=== PATIENT | male | born 1940 | race Hispanic/Latino ===

== ENCOUNTER 2016-08-30 08:52 | Emergency (ER) | payer MEDICARE, OTHER ==
[2016-08-30] VITALS (7 sets, daily range): BP systolic 109–140; BP diastolic 51–80; PULSE 73–82; RESP 12–18; O2SAT 91–95
[~2016-08-30] VITALS: Ht 172.7 cm; Wt 98.2 kg
[~2016-08-30 08:52] MED LIST: AMLO10TA3 PO; CLON0.1T PO; LABE200T PO; SPIR25TA3 PO; VALS320T12 PO
--- NOTE | 2016-08-30 09:07 | ED.REPORT ---
HPI-General Illness Date of Service Aug 30, 2016 ED Provider: Dr. Omer Pt is a 76 year old male with a hx of HTN, kidney problems presenting to the ED complaining of a productive cough onset last night. Associated symptoms include subjective fever and SOB. The pt was seen at recently and was diagnosed with influenza and pneumonia. Nursing Notes Stated Complaint: FEVER/SOB Chief Complaint: Respiratory Complaints Nursing Notes Reviewed: Yes Allergies: Coded Allergies: No Known Allergies (Unverified Allergy, Unknown, 02/11/15) Scheduled Amlodipine (Amlodipine) 10 Mg Tablet 10 MG PO HS Amoxicillin/Clav K 875-125 mg (Augmentin 875-125 mg) 1 Each Tablet 1 TABLET PO BID Clonidine (Clonidine) 0.1 Mg Tablet 0.1 MG PO HS Labetalol (Labetalol) 200 Mg Tablet 200 MG PO BID Levofloxacin (Levaquin) 750 Mg Tablet 750 MG PO DAILY Spironolactone (Spironolactone) 25 Mg Tablet 25 MG PO DAILY General Time Seen by MD: 09:07 Chief Complaint Cough Hx Obtained From: Patient Arrived By: Walk-in Sudden in Onset?: No Onset Occurred: Yesterday Symptom Duration: Since onset Severity: Current: No pain currently Severity: Maximum: No pain Recent Healthcare: No recent hospitalization, Recent doctor visit Similar Sx Previous: Yes Past Medical History Past Medical History Reported kidney problems Reports: Hypertension Past Surgical History Reports: Appendectomy Smoking History Former Smoker Social History Alcohol Use: Denies alcohol use Drug Use: Denies drug use Ambulatory Status Independent Review of Systems Full Review of Systems Constitutional: Reports: Fever Respiratory: Reports: Prod cough, clear, Shortness of breath GI: Denies: Abdominal pain, Nausea, Vomiting Neurologic: Denies: Weakness Complete sys rev & neg: except as marked. Physical Exam Vital Signs Vital Signs Date Time Temp Pulse Resp B/P Pulse Ox O2 Delivery O2 Flow Rate FiO2 08/30/16 11:54 76 15 121/60 93 Room Air 08/30/16 10:55 73 16 93 Room Air 08/30/16 10:49 82 123/63 93 Room Air 08/30/16 10:36 38.5 77 12 109/51 93 Room Air 08/30/16 10:17 80 91 Room Air 08/30/16 08:57 37.9 81 18 140/80 95 Initial VS: Reviewed General/Constitutional: Well-developed, Well-nourished Head / Eyes: Atraumatic, Normocephalic, PERRL ENT: Mucous membranes moist, Conjunctiva normal, No scleral icterus Cardiovascular: Regular rate & rhythm, Heart sounds normal, Intact distal pulses Abdomen / GI: Soft, Non-tender, No guarding, No rebound, No distention Extremities: Vascular intact, Neuro intact, No swelling, No tenderness Neurologic: Alert, Oriented, Nonfocal Psychiatric: Mood/affect normal, Behavior normal, Normal thought content Respiratory / Chest: Atraumatic, No respiratory distress Rales / Rhonchi: Positive: Rales bilateral bases Skin: Atraumatic, Color NL, No rash Warm to touch Interpretation & Diagnostics Lab Results Interpretation Result Diagram: 08/30/16 1018 08/30/16 1018 Test 08/30/16 10:18 White Blood Count 9.1th/mm3 (3.8-10.1) Red Blood Count 4.17mil/mm3 (4.40-5.80) Hemoglobin 13.1g/dL (13.8-17.2) Hematocrit 38.3% (41.0-50.0) Mean Corpuscular Volume 91.8fL (81-100) Mean Corpuscular Hemoglobin 31.4pg (27.0-35.0) Mean Corpuscular Hemoglobin Concent 34.2% (32.0-37.0) Red Cell Distribution Width 12.0% (12.3-15.4) Platelet Count 198bil/L (150-400) Neutrophils (%) (Auto) 71.8% (40-74) Lymphocytes (%) (Auto) 11.8% (14-46) Monocytes (%) (Auto) 15.2% (4-12) Eosinophils (%) (Auto) 0.8% (0-5) Basophils (%) (Auto) 0.2% (0-3) Sodium Level 134mEq/L (134-144) Potassium Level 4.2mEq/L (3.5-5.2) Chloride Level 96mEq/L (97-108) Carbon Dioxide Level 22mmol/L (18-29) Blood Urea Nitrogen 19mg/dL (8-27) Creatinine 1.39mg/dL (0.76-1.27) Estimat Glomerular Filtration Rate 53mL/min (>59) Glucose Level 138mg/dL (60-99) Lactic Acid Level 0.8mmol/L (0.4-2.0) Calcium Level 9.4mg/dL (8.5-10.1) Total Bilirubin 0.7mg/dL (0.0-1.2) Aspartate Amino Transf (AST/SGOT) 22U/L (0-50) Alanine Aminotransferase (ALT/SGPT) 20U/L (0-44) Alkaline Phosphatase 68U/L (25-160) Total Protein 7.9g/dL (6.4-8.4) Albumin 3.6g/dL (3.4-5.0) X-Ray Chest Interpretation Chest Xray Interpretation: IMPRESSION: 1. Infiltrate in the right upper lung zone above the minor fissure suggests pneumonia. There is pleural thickening along the minor fissure. Recommend followup to resolution. Dictated by: West Perry M.D. on 08/30/2016 at 11:45 View: AP & lat Interpretation / Wet Read by: Interpret - Radiologist Re-Eval/Medical Decision Med Decision/Clinical Course Readings consistent with community-acquired pneumonia. Patient's vital signs are stable, he had one recorded low oxygen reading at 91% however he was subsequently road tested with continuous pulse oximetry and passed with an average O2 sat of 94% and did not achieve hypoxia at any point while walking. He had no improvement with a breathing treatment however seems to have minimal symptoms while resting in the bed. His O2 sat is 93-94% while talking in the room. Labs are unremarkable. Chest x-rays consistent with pneumonia especially given his clinical history. It seems that azithromycin does not have broad coverage, he will be placed on Augmentin and Levaquin for more aggressive antibiotic therapy. Additionally he is given a gram of Rocephin while in the ER. He is given very explicit and Stearn return precautions as he is somewhat at risk given his advanced age however at this point does not have any admittable criteria at the moment. Time of Eval: 10:41 Patient Status: Condition improved Re-Evaluation/Progress Note: Discussed x ray results. Pt O2 sats while walking are at 92-94. Time of Eval: 12:00 Patient Status: Condition improved Re-Evaluation/Progress Note: Discussed plan for discharge. Pt understands and agrees with plan. Counseled Regarding: Diagnosis, Lab results, Need for follow-up, When/why to return to ED Discharge & Departure Primary Impression: Pneumonia Pneumonia type: due to unspecified organism Laterality: unspecified laterality Lung location: unspecified part of lung Qualified Code: J18.9 - Pneumonia, unspecified organism Disposition: Home Discharge Condition All VS Reviewed: Yes Condition: Improved Additional Instructions: You have pneumonia. Stop azithromycin, begin taking levofloxacin and Augmentin. Call your primary care doctor in the morning for close follow-up. Take Tylenol regularly to treat any fever. Your labs were normal today however there is a chance this could get worse. If you develop lethargy, trouble breathing, or any other concern that this is getting worse you should return immediately to the ER. Referrals: Josh Gee DO (PCP) Karina Attestation Portions of this note were transcribed by Latisha Chaidez. I, Dr. Omer personally performed the history, physical exam and medical decision-making; I reviewed and confirmed the accuracy of the information in the transcribed note. Signed by: Karina Amaya, 08/30/2016 at 1237. copies to: Josh Gee DO O'Kelley, Timothy S DO Aug 30, 2016 09:07 LATISHA CHAIDEZ Aug 30, 2016 09:15
[2016-08-30] MEDS ORDERED: AZIT250T4 PO (09:17)
[2016-08-30 10:29] LABS: BASOPHILS % (AUTO) 0.2 % (0-3); EOSINOPHILS % (AUTO) 0.8 % (0-5); MONOCYTES % (AUTO) 15.2 % (4-12); Mean Corpuscular Hemoglobin 31.4 pg (27.0-35.0); Mean Corpuscular Volume 91.8 fL (81-100); NEUTROPHILS % (AUTO) 71.8 % (40-74); Platelet Count 198 bil/L (150-400)
[2016-08-30] MEDS ORDERED: Albuterol 2.5 mg/3 mL Inhalation Solution NEB ONE (10:45)
--- NOTE | 2016-08-30 11:47 | DRSVH ---
PROCEDURE: X-RAY CHEST, TWO VIEWS ([id number]) INDICATIONS: cough, fever, sputum TECHNIQUE: 2 views of the chest were acquired. COMPARISON: [facility], CR, XR CHEST 1VW (PORTABLE), 02/11/2015, 15:47. [facility], CR, XR CHEST 2VW, 08/27/2016, 20:00. FINDINGS: Surgical changes and devices: None. Lungs and pleura: Infiltrate in the right upper lung zone above the minor fissure. There is pleural thickening along the right minor fissure. There is bilateral interstitial prominence, unchanged. Left basilar atelectasis. No pleural effusions or pneumothorax. Mediastinum: Mediastinal contours are normal. Heart size is normal. Bones and chest wall: No suspicious bony abnormalities. Soft tissues appear unremarkable. IMPRESSION: 1. Infiltrate in the right upper lung zone above the minor fissure suggests pneumonia. There is pleur al thickening along the minor fissure. Recommend followup to resolution. Dictated by: West Perry M.D. on 08/30/2016 at 11:45 Approved by: West Perry M.D. on 08/30/2016 at 11:46
[2016-08-30] MEDS ORDERED: cefTRIAXone Inj 1,000 MG, Lidocaine PF 1% Inj 2.1 ML in Syringe 0 EACH IM ONE (12:05)
[2016-08-30] MEDS ORDERED: LEVO750T9 PO (12:25)
[2016-08-30] MEDS ORDERED: AMOX-366 PO (12:25)
== END 2016-08-30 13:02 | disposition home or self-care (01) ==
LOC: SED 08:52
DX: J18.9 Pneumonia, unspecified organism (principal); I10 Essential (primary) hypertension; Z87.891 Personal history of nicotine dependence
CPT/HCPCS: 36415; 71020; 80053; 83605; 85025; 87633; 94664; 96372; 99285; J0696; J7613